=== PATIENT | female | born 1990 | race Two or more races ===

== ENCOUNTER 2020-02-26 14:15 | Emergency (ER) | payer OTHER ==
[~2020-02-26] VITALS: Ht 170.2 cm; Wt 67.6 kg
--- NOTE | 2020-02-26 14:15 | NUR ---
BIBself with c/o right ankle pain of 8/10 when moving and 6/10 at rest. waiting for md goodman
--- NOTE | 2020-02-26 14:20 | NUR ---
seen by MD with new order of x-ray. noted
[2020-02-26 15:26] VITALS: BP 108/85
== END 2020-02-26 15:26 | disposition home or self-care (01) ==
LOC: ER 14:19
DX: S93.491A Sprain of other ligament of right ankle, initial encounter (principal); Z88.8 Allergy status to other drugs, medicaments and biological substances; X50.1XXA Overexertion from prolonged static or awkward postures, initial encounter; Y93.89 Activity, other specified; Y92.89 Other specified places as the place of occurrence of the external cause; Y99.8 Other external cause status
CPT/HCPCS: 73610-TC

== ENCOUNTER 2020-04-12 12:24 | Emergency (ER) | payer OTHER ==
[~2020-04-12] VITALS: Ht 170.2 cm; Wt 72.7 kg
--- NOTE | 2020-04-12 12:30 | NUR ---
BIB SELF C/O SOB AND R LEG NUMBNESS + COVID ON 04/12/20. VS CHECKED, STABLE. SATURATING AT 100%. AFEBRILE. AWAITING MD MONTOYA.
[2020-04-12 13:38] VITALS: BP 120/89
== END 2020-04-12 13:39 | disposition home or self-care (01) ==
LOC: ER 12:32
DX: U07.1 COVID-19 (principal); Z88.8 Allergy status to other drugs, medicaments and biological substances